=== PATIENT | male | born 1935 | race Caucasian/White ===

== ENCOUNTER 2017-08-06 08:48 | Emergency (ER) | payer MEDICARE ==
--- NOTE | 2017-08-06 09:02 | ED Physician Chart ---
ED Chief Complaint/HPI - Patient Information Date Seen:: 08/06/17 Time Seen:: 09:01 Chief Complaint:: ABSCESS UPPER BACK X 2.5 WEEKS History of Present Illness:: THIS 81 YEAR OLD MALE PRESENTS WITH AN ACESS IN THE MID UPPER BACK THAT IS PAINFUL. SEVERITY OF PAIN RATED 5/10 SEVERITY. HE HAS MINOR IMPROVEMENT WITH OTC IBUPROFEN. PAIN IS WORSENED BY PRESSURE OVER THE ABSCESS. THE ABSCESS BEGAN TO DRAIN SPONTANEOUSLY 4 DAYS AGO. HE HAS HAD NO FEVER OR CHILLS. NO DIAPHORESIS. HE HAS NO PRIOR HISTORY OF ABSCESSES. HE DOES NOT HAVE DIABETES. ED Review of Systems - Review of Systems General/Constitutional: No fever, No chills, No weakness, No diaphoresis, No edema, No loss of appetite Skin: Other (ABSCESS UPPER BACK. NO RASH OR BRUISING.) Head: No headache, No light-headedness Eyes: No loss of vision, No pain, No diplopia ENT: No earache, No sore throat, No tinnitus Neck: No neck pain, No swelling, No stiffness, No mass noted Cardio Vascular: No chest pain, No palpitations, No orthopnea, No edema Pulmonary: No SOB, No cough, No sputum, No wheezing GI: No nausea, No vomiting, No diarrhea, No pain, No constipation, No hematemesis G/U: No dysuria, No frequency, No hematuria Musculoskeletal: No bone or joint pain, No muscle pain Endocrine: No polyuria, Polydipsia Psychiatric: No prior psych history, No depression, No anxiety, No suicidal ideation Hematopoietic: No bruising, No lymphadenopathy Allergic/Immuno: No urticaria, No angioedema Neurological: No syncope, No focal symptoms, No weakness, No paresthesia, No headache, No seizure, No dizziness, No confusion, No vertigo ED Past Medical History - Past Medical History Past Medical History: Other (NO HX OF DM, HTN, HEART DISEASE, COPD) Social History: Non Smoker, No Drug Use, Single, Other (RETIRED WORKED FOR [employer] IN [facility]) Surgical History: None Family Medical History - Family Member Mother Living Status: ED Physical Exam - Physical Examination General/Constitutional: Awake, Well-developed, well-nourished, Alert, No distress, GCS 15, Non-toxic appearing, Ambulatory Head: Atraumatic Eyes: Lids, conjuctiva normal, PERRL, EOMI Skin: No rash, No ecchymosis, Well hydrated, No lymphadenopathy Other Skin comments:: 2.5 CM BY 2.5 CM ABSCESS IN UPPER BACK. ENMT: External ears, nose nl, Nasal exam nl, Oropharynx nl Neck: Nontender, Full ROM w/o pain, No nuchal rigidity, No stridor Respiratory: Nl effort/Exclusion, Clear to Auscultation, No Wheeze/Rhonchi/Rales Cardio Vascular: RRR, No murmur, gallop, rubs Other Cardio Vascular comments:: GOOD PULSES ALL 4 EXTREMITIES WITH NO PERIPHERAL EDEMA. NO CALF TENDERNESS. GI: No tenderness/rebounding/guarding, No organomegaly, No hernia, Nondistended , No mass/bruits : No CVA tenderness Extremities: No tenderness or effusion, Full ROM, normal strength in all extremities, No edema Neuro/Psych: Alert/oriented, Normal sensory exam, Normal motor strength, Judgement/insight normal, Mood normal, Normal gait, No focal deficits Misc: No paraspinal tenderness ED Labs/Radiology/EKG Results - Lab Results Results: NO LAB OR X-RAY STUDIES INDICATED. ED Assessment - Assessment General Assessment: CASE SUMMARY: THIS 81 YEAR OLD MALE PRESENTS WITH A PAINFUL DRAINING ABSCESS IN THE UPPER BACK. NO ASSOCIATED with fever by that I or rash. ABSCESS I & D AND DRESSED (SEE PROCEDURE). DISCHARGED IN GOOD CONDITION. TO RETURN IN 1 WEEK FOR REMOVAL OF SILICONE STENT. RETURN SOONER IS SYMPTIONS WORSEN. PROCEDURE I & D: PT CONSENTED FOR ROUTINE I&D. BETADINE PREP OF SKIN OVER ABSCESS. LOCAL ANESTHESIA WITH 15 CC 1% LIDOCAINE FOR LOCAL BLOCK. ABSCESS INCISED WITH 11-BLADE. THE ABSCESS CAVITY WAS BROKEN UP BY BLUNT DIRECTION WITH HEMOSTATS. IRRIGATED WITH NORMAL SALINE WITH GOOD RETURN OF PURULENT MATERIAL. SILICONE STENT LOOP INSERTED AND TIED OFF. NURSING GAUZE DRESSING OVER THE WOUND. PT TOLERATED PROCEDURE WELL. MDM DDX FOR ABSCESS OVER UPPER BACK: NOT EPIDURAL ABSCESS BASED ON PATIENT'S HISTORY AND EXAM. NO NEUROLOGIC DEFICIT. ED Septic Shock - . Is Septic Shock (SBP<90, OR Lactate>4 mmol\L) present?: No ED Reassessment (Disposition) - Reassessment Reassessment Condition:: Improved - Diagnosis Diagnosis:: ABSCESS 2.5 X 2.5 CM UPPER BACK IN THE MIDLINE. RETURN IF YOUR SYMPTOMS WORSEN. RETURN IN 1 WEEK FOR REMOVAL OF SILICONE LOOP. ED Discharge Plan - Patient Disposition Admit/Discharge/Transfer: PT DISCHARGED HOME Condition at Disposition: Improved Instructions: Abscess
[2017-08-06] MEDS ORDERED: LIDOCAINE MPF INJ ONE (09:20)
== END 2017-08-06 10:08 | disposition home or self-care (01) ==
LOC: ER 08:48
DX: L02.212 Cutaneous abscess of back [any part, except buttock and flank] (principal)
CPT/HCPCS: 10060; J2001; Z7502

== ENCOUNTER 2017-08-13 08:15 | Emergency (ER) | payer MEDICARE ==
--- NOTE | 2017-08-13 08:41 | ED Physician Chart ---
ED Chief Complaint/HPI - Patient Information Date Seen:: 08/13/17 Time Seen:: 08:39 Chief Complaint:: RETURN VISIT FOR REMOVAL OF SILICONE BAND History of Present Illness:: PT WAS SEEN BY ME 1 WEEK AGO FOR ABSCESS IN THE UPPER BACK. IT WAS I&D AND A SILICONE BAND INSERTED TO HOLD THE WOUND OPEN. HE RETURNS TODAY FOR REMOVAL OF THE BAND. NO ACUTE COMPLAINTS. ITCHY BUT NOT PAINFUL. NO RECENT FEVER OR CHILLS. Allergies:: Allergies Allergy/AdvReac Type Severity Reaction Status Date / Time No Known Allergies Allergy Verified 08/06/17 09:04 Vitals:: Vital Signs - 8 hr 08/13/17 08:28 Temp 97.7 F HR 80 RR 19 BP 153/83 O2 Sat % 97 Family Medical History - Family Member Mother Living Status: ED Physical Exam - Physical Examination General/Constitutional: Well-developed, well-nourished, Alert, No distress, Non- toxic appearing, Ambulatory Head: Atraumatic (L) Other Skin comments:: PT WITH RESIDUAL OPEN ABSCESS THAT IS REDUCED IN SIZE AND STILL WITH SMALL AMOUNT OF DRAINAGE. ED Labs/Radiology/EKG Results - Lab Results Results: NO LABS OR RADIOLOGY STUDIES INDICATED. ED Assessment - Assessment General Assessment: CASE SUMMARY: THE SILOCONE BAND WAS REMOVED AND THE WOUND REDRESSED. PT GIVEN REFERRAL FOR FAMILY PHYSICIAN AND ROUTINE FOLLOW UP. DISCHARGED IN STABLE CONDITION. ED Septic Shock - . Is Septic Shock (SBP<90, OR Lactate>4 mmol\L) present?: No - <6hrs of presentation: Vital Signs: Vital Signs - 8 hr 08/13/17 08:28 Temp 97.7 F HR 80 RR 19 BP 153/83 O2 Sat % 97 ED Reassessment (Disposition) - Reassessment Reassessment Condition:: Improved (ABSCESS UPPER BACK, POST DRAINAGE RECHECK.) - Diagnosis Diagnosis:: ABSCESS UPPER BACK, DRAINED - Patient Disposition Discharge/Transfer:: Home
== END 2017-08-13 09:16 | disposition home or self-care (01) ==
LOC: ER 08:15
DX: L02.212 Cutaneous abscess of back [any part, except buttock and flank] (principal)
CPT/HCPCS: Z7502